=== PATIENT | male | born 1950 | race Caucasian/White ===

== ENCOUNTER 2017-01-24 14:18 | Inpatient (IN) | payer OTHER, MEDICARE ==
[~2017-01-24] VITALS: Ht 177.8 cm; Wt 88.5 kg
[2017-01-24] VITALS (7 sets, daily range): BP systolic 96–127; BP diastolic 47–93
[~2017-01-24 14:18] MED LIST changes: -APIX5TAB PO; -CALC-69 PO; -CETI10CA PO; -CHOL10007 PO; -DILT120C63 PO; -GARL10002 PO; -GLUC-219 PO; -KRIL1CAP2 PO; -MULT-1029 PO; -NAPR220C11 PO; -OMEG-109 PO; -PANT40TA3 PO; -SIMV40TA4 PO; -[UNRECOGNIZED DRUG - OTHER] PO
[2017-01-24] MEDS ORDERED: DILTIAZEM 100 MG/VIAL (CARDIZEM) ADD-VANTAGE IV ONE (14:29)
[2017-01-24] MEDS ORDERED: DILTIAZEM 25 MG/5 ML INJ (CARDIZEM) VIAL ONE (14:29)
[2017-01-24] MEDS ORDERED: SODIUM CHLORIDE (ADD-VANTAGE) 100 ML IV ONE (14:29)
[2017-01-24] MEDS ORDERED: NS IV 1000 ML 1,000 ML IV ONE (14:37)
[2017-01-24 14:41] LABS: BASOPHILS % (AUTO) 0 % (0-10); EOSINOPHILS # (AUTO) 0.1 10^3/uL (0.0-0.3); EOSINOPHILS % (AUTO) 1 % (0-10); LYMPHOCYTES # (AUTO) 1.6 X 10^3 (1.0-4.0); LYMPHOCYTES % (AUTO) 15 % (12-44); MEAN CORPUSCULAR HEMOGLOBIN 31 PG (25-34); MEAN CORPUSCULAR HGB CONC 34 G/DL (32-36); MEAN CORPUSCULAR VOLUME 92 FL (80-99); MONOCYTES # (AUTO) 0.6 X 10^3 (0.0-1.0); MONOCYTES % (AUTO) 5 % (0-12); NEUTROPHILS # (AUTO) 8.2 X 10^3 (1.8-7.8); NEUTROPHILS % (AUTO) 79 % (42-75); PLATELET COUNT 279 10^3/uL (130-400); RED BLOOD COUNT 5.27 10^6/uL (4.35-5.85); WHITE BLOOD COUNT 10.5 10^3/uL (4.3-11.0)
[2017-01-24] MEDS ORDERED: ASPIRIN 81 MG CHEW (CHILDREN'S ASA) PO ONE (14:45)
[2017-01-24] MEDS ORDERED: DILTIAZEM DRIP 100 MG in SODIUM CHLORIDE (ADD-VANTAGE) 100 ML IV SCH (14:45)
[2017-01-24] MEDS ORDERED: DILTIAZEM 25 MG/5 ML INJ (CARDIZEM) VIAL IVP ONE (14:45)
[2017-01-24 14:48] LABS: PROTHROMBIN TIME PATIENT 13.1 SEC (12.2-14.7)
[2017-01-24 14:56] LABS: ALANINE AMINOTRANSFERASE 18 U/L (0-55); ALBUMIN 4.3 GM/DL (3.2-4.5); ANION GAP 8 MMOL/L (5-14); ASPARTATE AMINO TRANSFERASE 15 U/L (5-34); BILIRUBIN,TOTAL 0.4 MG/DL (0.1-1.0); BLOOD UREA NITROGEN 20 MG/DL (7-18); BUN/CREATININE RATIO 21; CALCIUM 9.9 MG/DL (8.5-10.1); CARBON DIOXIDE 26 MMOL/L (21-32); CHLORIDE 106 MMOL/L (98-107); CREATININE SERUM 0.95 MG/DL (0.60-1.30); GFR ESTIMATED > 60; GLUCOSE 109 MG/DL (70-105); MAGNESIUM 2.3 MG/DL (1.8-2.4); POTASSIUM 4.5 MMOL/L (3.6-5.0); SODIUM 140 MMOL/L (135-145); TOTAL PROTEIN 7.5 GM/DL (6.4-8.2)
--- NOTE | 2017-01-24 15:00 | ED Cardiac General ---
History of Present Illness General Chief Complaint: Cardiac/General Problems Stated Complaint: EKG RESULTS Source: patient Exam Limitations: no limitations History of Present Illness Time seen by provider: 14:36 Initial Comments Here with report of chest fluttering that started at 1230. He had outpatient EKG ordered by his primary care physician. They noted atrial fibrillation with rapid ventricular rate and brought him to the ER for further evaluation. Patient does report chest discomfort. He has had a previous episode of atrial fibrillation but is not persistently in this. Denies nausea, vomiting, weakness or shortness of air. Denies sweating. Timing/Duration: 1-3 hours Severity: moderate Location: central Modifying Factors: improves with rest NTG SL BOW MAKER: No ASA po BOW MAKER: No Associated Systoms: No Chest Pain, No Cough, No Fever/Chills, No Nausea/ Vomiting, No Shortness of Air, No Weakness Allergies and Home Medications Allergies Coded Allergies: No Known Drug Allergies (Unverified , 02/16/12) Home Medications Calcium Carbonate/Vitamin D3 1 Each Tablet, 1 EACH PO DAILY, (Reported) Cholecalciferol (Vitamin D3) 1,000 Unit Tablet, 1,000 UNIT PO DAILY, (Reported) Multivitamin 1 Each Tablet, 1 EACH PO DAILY, (Reported) [place] 3 Polyunsat Fatty Acids 1,000 Mg Cap, 1,000 MG PO DAILY, (Reported) Pantoprazole Sodium 40 Mg Tablet.dr, 40 MG PO DAILY, (Reported) Simvastatin 40 Mg Tablet, 40 MG PO DAILY, (Reported) Review of Systems Constitutional: see HPI, No chills, fever EENTM: No Symptoms Reported Respiratory: No Symptoms Reported Cardiovascular: See HPI, Chest Pain, Irregular Heart Rate, Denies Palpitations , Denies Syncope Gastrointestinal: No Symptoms Reported, Denies Nausea, Denies Vomiting Genitourinary: No Symptoms Reported Musculoskeletal: no symptoms reported Skin: no symptoms reported All Other Systems Reviewed Negative Unless Noted: Yes Past Dflqfzf-Yrolqo-Dzdiqw Hx Patient Social History Alcohol Use: Occasionally Uses Recreational Drug Use: No Smoking Status: Never a Smoker Recent Foreign Travel: No Contact w/Someone Who Travel: No Immunizations Up To Date Date of Influenza Vaccine: Apr 23, 2015 Surgeries HX Surgeries: Yes Respiratory Hx Respiratory Disorders: No Cardiovascular Hx Cardiac Disorders: Yes Cardiac Disorders: High Cholesterol, Irregular Heartbeat Neurological Hx Neurological Disorders: No Gastrointestinal Hx Gastrointestinal Disorders: No Musculoskeletal Hx Musculoskeletal Disorders: No Endocrine Hx Endocrine Disorders: No Reviewed Nursing Assessment Reviewed/Agree w Nursing PMH: Yes Family Medical History Significant Family History: No Pertinent Family Hx Physical Exam Vital Signs Vital Sign - Last 12Hours 01/24/17 14:20 Temp 97.1 Pulse 153 Resp 25 B/P (MAP) 129/103 Pulse Ox 99 Capillary Refill : General Appearance: No Apparent Distress, WD/WN HEENT: PERRL/EOMI, Pharynx Normal Neck: Non Tender, Supple Respiratory: Lungs Clear, Normal Breath Sounds Cardiovascular: No Murmur, Irregularly Irregular, Tachycardia Gastrointestinal: Non Tender, Soft Extremity: Normal Inspection, Normal Range of Motion, Non Tender Neurologic/Psychiatric: Alert, Oriented x3 Skin: Normal Color, Warm/Dry Progress/Results/Core Measures Results/Orders Lab Results Laboratory Tests Test 01/24/17 14:30 Range/Units White Blood Count 10.5 4.3-11.0 10^3/uL Red Blood Count 5.27 4.35-5.85 10^6/uL Hemoglobin 16.3 13.3-17.7 G/DL Hematocrit 48 40-54 % Mean Corpuscular Volume 92 80-99 FL Mean Corpuscular Hemoglobin 31 25-34 PG Mean Corpuscular Hemoglobin Concent 34 32-36 G/DL Red Cell Distribution Width 13.0 10.0-14.5 % Platelet Count 279 130-400 10^3/uL Mean Platelet Volume 10.0 7.4-10.4 FL Neutrophils (%) (Auto) 79 H 42-75 % Lymphocytes (%) (Auto) 15 12-44 % Monocytes (%) (Auto) 5 0-12 % Eosinophils (%) (Auto) 1 0-10 % Basophils (%) (Auto) 0 0-10 % Neutrophils # (Auto) 8.2 H 1.8-7.8 X 10^3 Lymphocytes # (Auto) 1.6 1.0-4.0 X 10^3 Monocytes # (Auto) 0.6 0.0-1.0 X 10^3 Eosinophils # (Auto) 0.1 0.0-0.3 10^3/uL Basophils # (Auto) 0.0 0.0-0.1 10^3/uL Prothrombin Time 13.1 12.2-14.7 SEC INR Comment 1.0 0.8-1.4 Activated Partial Thromboplast Time 28 24-35 SEC Sodium Level 140 135-145 MMOL/L Potassium Level 4.5 3.6-5.0 MMOL/L Chloride Level 106 98-107 MMOL/L Carbon Dioxide Level 26 21-32 MMOL/L Anion Gap 8 5-14 MMOL/L Blood Urea Nitrogen 20 H 7-18 MG/DL Creatinine 0.95 0.60-1.30 MG/DL Estimat Glomerular Filtration Rate > 60 BUN/Creatinine Ratio 21 Glucose Level 109 H 70-105 MG/DL Calcium Level 9.9 8.5-10.1 MG/DL Magnesium Level 2.3 1.8-2.4 MG/DL Total Bilirubin 0.4 0.1-1.0 MG/DL Aspartate Amino Transf (AST/SGOT) 15 5-34 U/L Alanine Aminotransferase (ALT/SGPT) 18 0-55 U/L Alkaline Phosphatase 51 40-136 U/L Myoglobin 63.1 10.0-92.0 NG/ML Troponin I < 0.30 <0.30 NG/ML Total Protein 7.5 6.4-8.2 GM/DL Albumin 4.3 3.2-4.5 GM/DL My Orders Orders - TARAS PERKINS MD Diltiazem Drip (Cardizem Drip) (01/24/17 14:29) Diltiazem Injection (Cardizem Injection) (01/24/17 14:29) Sodium Chloride (Add-Russell) (Ns (Add-V (01/24/17 14:29) Cbc With Automated Diff (01/24/17 14:36) Magnesium (01/24/17 14:36) Chest 1 View, Ap/Pa Only (01/24/17 14:36) Cardiac Profile 1 (01/24/17 14:36) Comprehensive Metabolic Panel (01/24/17 14:36) Myoglobin Serum (01/24/17 14:36) Protime With Inr (01/24/17 14:36) Partial Thromboplastin Time (01/24/17 14:36) O2 (01/24/17 14:36) Monitor-Rhythm Ecg Trace Only (01/24/17 14:36) Lipid Panel (01/25/17 06:00) Aspirin Chewable Tablet (Baby Aspirin Ch (01/24/17 14:45) Saline Lock/Iv-Start (01/24/17 14:36) Diltiazem Injection (Cardizem Injection) (01/24/17 14:45) Sodium Chloride (Ad... W/Diltiazem Drip (01/24/17 14:45) Ns Iv 1000 Ml (Sodium Chloride 0.9%) (01/24/17 14:37) Enoxaparin Injection (Lovenox Injection) (01/24/17 15:45) Medications Given in ED Current Medications Medications Dose Ordered Sig/Emeli Route Start Time Stop Time Status Last Admin Dose Admin Aspirin 324 mg ONCE ONCE PO 01/24/17 14:45 01/24/17 14:46 DC 01/24/17 15:11 324 MG Diltiazem HCl 20 mg ONCE ONCE IVP 01/24/17 14:45 01/24/17 14:46 DC 01/24/17 14:48 20 MG Sodium Chloride 1,000 ml @ 0 mls/hr Q0M ONCE IV 01/24/17 14:37 01/24/17 14:38 DC 01/24/17 15:11 1,000 MLS/HR Vital Signs/I&O Vital Sign - Last 12Hours 01/24/17 01/24/17 14:20 14:48 Temp 97.1 Pulse 153 155 Resp 25 18 B/P (MAP) 129/103 149/103 Pulse Ox 99 99 Progress Note : Progress Note Seen and evaluated. IV, labs, chest x-ray ordered. EKG reviewed that was done at outpatient clinic today. Normal saline 1 L bolus. Cardizem 20 mg IV and 10 mg per hour drip initiated. Monitor patient. This did improve his rate. Lovenox 1 mg/kg subcutaneous ordered. Case discussed with Dr. Sanchez who accepts patient in consult. Discussed case with Sridhar Sierra, who accepts patient for admission, inpatient status. Patient and family agree with plan. ECG Initial ECG Impression Date: Jan 24, 2017 Initial ECG Impression Time: 14:07 Initial ECG Rate: 164 Initial ECG Rhythm: A Fib/Flutter Initial ECG Impression: Atrial Fibrillation w/RVR Comment Atrial fibrillation with rapid ventricular rate. Normal but rightward axis. No evidence of ST elevation MA. No previous available for comparison. Interpreted by me. Diagnostic Imaging Diagonstic Imaging: Xray Plain Films/CT/US/NM/MRI: chest Comments [facility]. [place], [place] NAME: ANTHONY CHAO [facility] REC#: [id number] PT STATUS: REG ER : 1950 PHYSICIAN: TARAS PERKINS MD ADMIT DATE: 01/24/17/ER Draft Date of Exam:01/24/17 CHEST 1 VIEW, AP/PA ONLY INDICATION: Cardiac dysrhythmia. COMPARISON: No previous study is available for comparison at this time. FINDINGS: Heart size and pulmonary vasculature are within normal limits, and the lungs are clear, bilaterally. IMPRESSION: Unremarkable chest. Dictated on workstation # [id number] Dict: 01/24/17 1519 Trans: 01/24/17 1521 [facility] [id number] Interpreted by: YONATHAN RODRIGUEZ MD Electronically signed by: Departure Communication Time/Spoke to Admitting Phy: 15:34 Time/Spoke to Consulting Physi: 15:29 Impression Impression: Primary Impression: Atrial fibrillation with rapid ventricular response Additional Impression: Chest pain Qualified Codes: R07.9 - Chest pain, unspecified Disposition: 01 HOME, SELF-CARE Condition: Improved Decision to Admit Reason: Admit from ER (General) Decision to Admit/Date: Jan 24, 2017 Time/Decision to Admit Time: 15:29 Departure-Patient Inst. Decision time for Depature: 15:45 Referrals: SRIDHAR ZHOU MD (PCP/Family) Primary Care Physician TARAS PERKINS MD Jan 24, 2017 15:00
[2017-01-24 15:01] LABS: MYOGLOBIN SERUM 63.1 NG/ML (10.0-92.0)
--- NOTE | 2017-01-24 15:22 | Diagnostic Imaging Report ---
INDICATION: Cardiac dysrhythmia. COMPARISON: No previous study is available for comparison at this time. FINDINGS: Heart size and pulmonary vasculature are within normal limits, and the lungs are clear, bilaterally. IMPRESSION: Unremarkable chest. Dictated by: Dictated on workstation # [id number]
[2017-01-24] MEDS ORDERED: ENOXAPARIN 100 MG/1 ML (LOVENOX) SYR SC ONE (15:45)
[2017-01-24] MEDS ORDERED: morphine INJ 4 MG/ML 1 ML (VIAL/SYRINGE) IV PRN (17:15)
[2017-01-24] MEDS ORDERED: NITROGLYCERIN SUBLINGUAL 0.4 MG TAB (NITROSTAT) SL PRN (17:15)
[2017-01-24] MEDS ORDERED: CATHETER FLUSH 10 ML SYR IV PRN (17:15)
[2017-01-24] MEDS: DILTIAZEM 120 MG (CARDIZEM CD) CAP PO SCH (17:54)
[2017-01-24] MEDS: DILTIAZEM DRIP 100 MG/NS 100 ML IV SCH ×2 (17:56)
[2017-01-24] MEDS: NS IV 1000 ML 1,000 ML IV SCH (17:57)
[2017-01-24] MEDS ORDERED: NAPR220C11 PO (20:14)
[2017-01-24] MEDS ORDERED: CETI10CA PO (20:15)
--- NOTE | 2017-01-24 20:44 | History & Physical ---
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 He started having palpitations so his employer recommended he go home or to the ER. This is the 3rd occurrence of his palpitations. He called my office and I ordered a EKG at [address]- showing Afib with RVR- He denies fevers, chills, headaches. He then was sent to the ER for stabilization. He was started on IVF and diltiazem and admitted to ICU- Pt converted to sinus rhythm with PACs. Pt's became hypotensive and bradycardic but asymptomatic- Diltiazem IV was stopped. Pt reports feeling better. Date of Admission Jan 24, 2017 at 15:40 Date Seen by Provider: Jan 24, 2017 Time Seen by Provider: 18:15 I consulted on this patient on 01/24/17 20:43 Attending Physician Sridhar Zhou MD Admitting Physician Sridhar Zhou MD Consult Dr. Sanchez Allergies and Home Medications Allergies Coded Allergies: No Known Drug Allergies (Unverified , 02/16/12) Home Medications Calcium Carbonate/Vitamin D3 1 Each Tablet, 1 EACH PO DAILY, (Reported) Cetirizine HCl 10 Mg Capsule, 10 MG PO DAILY, (Reported) Cholecalciferol (Vitamin D3) 1,000 Unit Tablet, 1,000 UNIT PO DAILY, (Reported) Multivitamin 1 Each Tablet, 1 EACH PO DAILY, (Reported) Naproxen Sodium 220 Mg Capsule, 220 MG PO DAILY, (Reported) [place] 3 Polyunsat Fatty Acids 1,000 Mg Cap, 1,000 MG PO DAILY, (Reported) Pantoprazole Sodium 40 Mg Tablet.dr, 40 MG PO DAILY, (Reported) Simvastatin 40 Mg Tablet, 40 MG PO DAILY, (Reported) Past Zdlabpy-Nyptmc-Dzzyrx Hx Patient Social History Alcohol Use: Denies Use Recreational Drug Use: No Smoking Status: Former Smoker Physical Abuse Screen: No Sexual Abuse: No Recent Foreign Travel: No Contact w/other who traveled: No Recent Hopitalizations: No Recent Infectious Disease Expo: No Immunizations Up To Date Date of Influenza Vaccine: Apr 23, 2015 Seasonal Allergies Seasonal Allergies: No Surgeries HX Surgeries: Yes Respiratory Hx Respiratory Disorders: No Cardiovascular Hx Cardiovascular Disorders: Yes Cardiac Disorders: High Cholesterol, Irregular Heartbeat Neurological Hx Neurological Disorders: No Gastrointestinal Hx Gastrointestinal Disorders: No Musculoskeletal Hx Musculoskeletal Disorders: No Endocrine Hx Endocrine Disorders: No Blood Transfusions Adverse Reaction to a Blood Tr: No Reviewed Nursing Assessment Reviewed/Agree w Nursing PMH: Yes Family Medical History Significant Family History: No Pertinent Family Hx Review of Systems Review of Systems General: No Chills, No Night Sweats HEENT: No Head Aches, No Visual Changes Pulmonary: No Dyspnea, No Cough, No Pleuritic Chest Pain Cardiovascular: Palpitations, No: Chest Pain, Orthopnea Gastrointestinal: No: Abdominal Pain, Nausea, Vomiting Genitourinary: No Dysuria, No Frequency Musculoskeletal: No: neck pain, shoulder pain Neurological: Weakness, No: Confusion, Incoordination All Other Systems Reviewed All Other Systems Reviewed: Yes Physical Exam Vital Signs Vital Sign - Last 12Hours 01/24/17 14:20 Temp 97.1 Pulse 153 Resp 25 B/P (MAP) 129/103 Pulse Ox 99 Capillary Refill : Less Than 3 Seconds General Appearance: No Apparent Distress, WD/WN HEENT: PERRL/EOMI Neck: Normal Inspection, Non Tender, Supple Respiratory: Chest Non Tender, Lungs Clear, Normal Breath Sounds, No Accessory Muscle Use, No Respiratory Distress Cardiovascular: Regular Rate, Rhythm, No Edema, No Murmur, Extra Beats (PACs) Gastrointestinal: Normal Bowel Sounds, Non Tender, Soft Extremity: Normal Range of Motion, Non Tender, No Calf Tenderness Neurologic/Psychiatric: Alert, Oriented x3, No Motor/Sensory Deficits, Normal Mood/Affect Skin: Normal Color, Warm/Dry Lymphatic: No Adenopathy Assessment/Plan Assessment/Plan Assessment/Plan 67 yo M * Paroxysmal Atrial fibrillation- Last episode was May 2016- currently on therapeutic lovenox- converted with IVF, diltiazem gtts- ( gtts stopped due to hypotension) -ECHO 01/25/17 -TSH, T4 -[id number] score: 1 intermediate risk 1.3% per year of thromboembolism rate- Aspirin -Dr. Sanchez to see pt 01/25/17 -diltiazem po. *hypotension/bradycardia- due to diltiazem gtts- turned off gtts- heart rate and BP improving. *fatigue- due to afib *chest discomfort- trend troponins *GERD- ppi Dispo: will reassess in AM- diltiazem gtts dropped pt's BP and pulse- d/c'd Dr. Sanchez to see pt. Problems: Clinical Quality Measures AMI/AHF: ASA po Prior to arrival: No DVT/VTE Risk/Contraindication: Risk Factor Score Per Nursin RFS Level Per Nursing on Admit: 2=Moderate SRIDHAR ZHOU MD Jan 24, 2017 20:44
[2017-01-25] VITALS (13 sets, daily range): BP systolic 80–136; BP diastolic 46–74
[2017-01-25] MEDS: DILTIAZEM DRIP 100 MG/NS 100 ML IV SCH ×2 (03:08)
[2017-01-25] MEDS: NS IV 1000 ML 1,000 ML IV SCH (03:50)
[2017-01-25 04:02] LABS: BASOPHILS % (AUTO) 0 % (0-10); EOSINOPHILS # (AUTO) 0.1 10^3/uL (0.0-0.3); EOSINOPHILS % (AUTO) 2 % (0-10); LYMPHOCYTES # (AUTO) 1.9 X 10^3 (1.0-4.0); LYMPHOCYTES % (AUTO) 31 % (12-44); MEAN CORPUSCULAR HEMOGLOBIN 31 PG (25-34); MEAN CORPUSCULAR HGB CONC 33 G/DL (32-36); MEAN CORPUSCULAR VOLUME 94 FL (80-99); MEAN PLATELET VOLUME 10.5 FL (7.4-10.4); MONOCYTES # (AUTO) 0.4 X 10^3 (0.0-1.0); MONOCYTES % (AUTO) 6 % (0-12); NEUTROPHILS # (AUTO) 3.6 X 10^3 (1.8-7.8); NEUTROPHILS % (AUTO) 60 % (42-75); PLATELET COUNT 249 10^3/uL (130-400); RED BLOOD COUNT 4.46 10^6/uL (4.35-5.85); RED CELL DISTRIBUTION WIDTH 13.2 % (10.0-14.5)
[2017-01-25 04:29] LABS: ALANINE AMINOTRANSFERASE 16 U/L (0-55); ALBUMIN 3.4 GM/DL (3.2-4.5); ANION GAP 12 MMOL/L (5-14); ASPARTATE AMINO TRANSFERASE 13 U/L (5-34); BILIRUBIN,TOTAL 0.5 MG/DL (0.1-1.0); BLOOD UREA NITROGEN 18 MG/DL (7-18); BUN/CREATININE RATIO 22; CALCIUM 8.4 MG/DL (8.5-10.1); CARBON DIOXIDE 19 MMOL/L (21-32); CHLORIDE 108 MMOL/L (98-107); CREATININE SERUM 0.83 MG/DL (0.60-1.30); GFR ESTIMATED > 60; GLUCOSE 98 MG/DL (70-105); POTASSIUM 4.1 MMOL/L (3.6-5.0); SODIUM 139 MMOL/L (135-145); TOTAL PROTEIN 5.9 GM/DL (6.4-8.2)
[2017-01-25 04:52] LABS: THYROID STIMULATING HORMONE 3.79 UIU/ML (0.35-4.94)
[2017-01-25 04:57] LABS: CHOLESTEROL 158 MG/DL (< 200); DIRECT LDL 110 MG/DL (1-129); TRIGLYCERIDES 79 MG/DL (<150); VLDL CHOLESTEROL 16 MG/DL (5-40)
[2017-01-25 05:12] LABS: MAGNESIUM 2.1 MG/DL (1.8-2.4); PHOSPHORUS 3.5 MG/DL (2.3-4.7)
[2017-01-25] MEDS ORDERED: ENOXAPARIN 100 MG/1 ML (LOVENOX) SYR SC SCH (06:00)
[2017-01-25] MEDS ORDERED: PANTOPRAZOLE 40 MG (PROTONIX) TAB PO SCH (09:00)
[2017-01-25] MEDS ORDERED: ASPIRIN E.C. 325 MG (ECOTRIN) TABLET PO SCH (09:00)
[2017-01-25] MEDS ORDERED: APIXABAN 5 MG (ELIQUIS) TABLET PO SCH (10:00)
[2017-01-25] MEDS ORDERED: PANT40TA3 PO (10:11)
[2017-01-25] MEDS ORDERED: CALC-69 PO (10:11)
[2017-01-25] MEDS ORDERED: KRIL1CAP2 PO (10:11)
[2017-01-25] MEDS ORDERED: [UNRECOGNIZED DRUG - OTHER] PO (10:11)
[2017-01-25] MEDS ORDERED: GARL10002 PO (10:11)
[2017-01-25] MEDS ORDERED: CHOL10007 PO (10:11)
[2017-01-25] MEDS ORDERED: OMEG-109 PO (10:11)
[2017-01-25] MEDS ORDERED: SIMV40TA4 PO (10:11)
[2017-01-25] MEDS ORDERED: MULT-1029 PO (10:11)
[2017-01-25] MEDS ORDERED: GLUC-219 PO (10:11)
[2017-01-25] MEDS: DILTIAZEM 120 MG (CARDIZEM CD) CAP PO SCH (11:01)
[2017-01-25] MEDS ORDERED: DILT120C63 PO (12:41)
[2017-01-25] MEDS ORDERED: APIX5TAB PO (12:41)
--- NOTE | 2017-01-25 12:49 | Discharge Summary ---
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 He started having palpitations so his employer recommended he go home or to the ER. This is the 3rd occurrence of his palpitations. He called my office and I ordered a EKG at [address]- showing Afib with RVR- He denies fevers, chills, headaches. He then was sent to the ER for stabilization. He was started on IVF and diltiazem and admitted to ICU- Pt converted to sinus rhythm with PACs. Pt's became hypotensive and bradycardic but asymptomatic- Diltiazem IV was stopped. Pt reports feeling better. Discharge Summary Hospital Course Hospital Course 67 yo M found to have Paroxysmal Atrial fibrillation with RVR- he converted with IVF and diltiazem- It appeared that the diltiazem gtts gave him hypotension and bradycardia so it was stopped. Thyroid labs were normal. Echo was normal. -[id number] score: 1 intermediate risk 1.3% per year of thromboembolism rate- After discussion with Dr. Sanchez patient decided to go with [facility] as it has a lower stroke risk profile. Pt will continue diltiazem po and monitor pulse. Troponins were negative. Patient was stable for discharge the following day in normal sinus rhythm- pulse was still in the 50s- asymptomatic bradycardia. He will follow up with myself and Dr. Sanchez. Labs Procedures None. Consultations Dr. Sanchez Discharge Physical Examination Allergies: Coded Allergies: No Known Drug Allergies (Unverified , 02/16/12) Vitals & I&Os Vital Signs Date Time Temp Pulse Resp B/P (MAP) Pulse Ox O2 Delivery O2 Flow Rate FiO2 01/25/17 13:20 01/25/17 13:00 44 19 95 Room Air 01/25/17 07:00 96.7 General Appearance: Alert, Oriented X3, Cooperative HEENT: Atraumatic, PERRLA Respiratory: Clear to Auscultation Cardiovascular: Regular Rate Abdominal: Normal Bowel Sounds, Soft Extremities: No Clubbing, No Cyanosis Skin: No Rashes, No Breakdown Neuro: Normal Gait, Normal Speech, Strength at 5/5 X4 Ext Psych/Mental Status: Mental Status NL, Mood NL Discharge Home Medications Reviewed and agree with Discharge Medication list on patient's Discharge Instruction sheet Condition at Discharge stable Instructions to Patient/Family Please see electronic discharge instructions given to patient. Clinical Quality Measures AMI/AHF: ASA po Prior to arrival: No DVT/VTE Risk/Contraindication: Risk Factor Score Per Nursin RFS Level Per Nursing on Admit: 2=Moderate MADELINE ZHOU MD Jan 25, 2017 12:49
--- NOTE | 2017-01-25 13:25 | Consultation-Cardiology ---
HPI-Cardiology Cardiology Consultation: Date of Consultation 01/25/17 Date of Admission Attending Physician Sridhar Lomax MD Admitting Physician Sridhar Lomax MD Consulting Physician Sherri SANCHEZ MD HPI: Time Seen by Provider: 10:00 Chief Complaint: Palpitations This is a 67-year-old gentleman who has no significant past cardiac history. Presents with atrial fibrillation with rapid ventricular rate. He was complaining of palpitations keep. Denies syncope, near-syncope, chest pain or shortness of breath. Review of Systems-Cardiology Review of Systems Constitutional: No As described under HPI, No no symptoms reported, No chills, No fever, No lightheadedness, No malaise, No tiredness, No weight loss, No weight gain, No other Eyes: No As described under HPI, No no symptoms reported, No blindness, No blurred vision, No contact lenses, No drainage, No decreased acuity, No foreign body sensation, No glasses, No inflammation, No pain, No photophobia, No previous injury, No shadows, No tunnel vision, No other, No vision change Ears/Nose/Throat: No As described under HPI, No no symptoms reported, No chronic hearing loss, No epistaxis, No ear discharge, No ear pain, No loose teeth, No mouth pain, No mouth swelling, No nasal drainage, No nose pain, No recent hearing loss, No throat pain, No throat swelling, No ulcerations, No other Respiratory: No no symptoms reported, No As described under HPI, No cough, No orthopnea, No shortness of breath, No SOB with excertion, No SOB at rest, No stridor, No wheezing, No other Cardiovascular: irregular heart rate, palpitations Gastrointestinal: No no symptoms reported, No As described under HPI, No abdomen distended, No abdominal pain, No blood streaked bowels, No constipation , No diarrhea, No difficulty swallowing, No nausea, No poor appetite, No poor fluid intake, No rectal bleeding, No vomiting, No other, No nausea/vomiting/ diarrhea, No stool coloration changes Genitourinary: No no symptoms reported, No As described under HPI, No burning, No dysuria, No discharge, No frequency, No flank pain, No hematuria, No incontinence, No pain, No urgency, No other, No urine frequency changes, No urine coloration changes Musculoskeletal: No no symptoms reported, No As describe under HPI, No back pain, No gout, No joint pain, No joint swelling, No muscle pain, No muscle stiffness, No neck pain, No other Skin: No no symptoms reported, No As described under HPI, No change in color, No change in hair/nails, No dryness, No lesions, No lumps, No rash, No other, No skin related problems, No ulcerations, No rash on exposed areas, No ulcerations on exposed areas Psychiatric/Neurological: No As described under HPI, No anxiety, No depression , No emotional problems, No focal weakness, No headache, No no symptoms reported , No numbness, No other, No pre-existing deficit, No seizure, No syncope, No tingling, No tremors, No weakness Hematologic: No no symptoms reported, No As described under HPI, No anemia, No blood clots, No easy bleeding, No easy bruising, No swollen glands, No other, No bleeding abnormalities All Other Systems Reviewed Negative Unless Noted: Yes NOI-Abrxcy-Sotgsh Hx Patient Social History Alcohol Use: Denies Use Recreational Drug Use: No Smoking Status: Former Smoker Recent Foreign Travel: No Recent Infectious Disease Expo: No Hospitalization with Isolation: Denies Physical Abuse Screen: No Sexual Abuse: No Immunizations Up To Date Date of Influenza Vaccine: Apr 23, 2015 Past Medical History PMH As described under Assessment. Allergies and Home Medications Allergies Coded Allergies: No Known Drug Allergies (Unverified , 02/16/12) Home Medications Apixaban 5 Mg Tablet, 5 MG PO BID for 30 Days, Ref 2 Prescribed by: KEO GUILLEN on 01/25/17 1241 Calcium Citrate/Vitamin D3 1 Each Tablet, 1 TAB PO HS, (Reported) Cetirizine HCl 10 Mg Capsule, 10 MG PO SuTuThSa, (Reported) Cholecalciferol (Vitamin D3) 1,000 Unit Capsule, 1,000 UNIT PO HS, (Reported) Diltiazem HCl 120 Mg Cap.er.24h, 120 MG PO DAILY for 30 Days, Ref 2 Prescribed by: KEO GUILLEN on 01/25/17 1241 Garlic 1,000 Mg Capsule, 1,000 MG PO HS, (Reported) Glucosamine/D3/Boswellia Belle 1 Each Tablet, 2 TAB PO BID, (Reported) Krill Oil/Dexter-3/Dha/Epa 1 Each Capsule, 1 CAP PO HS, (Reported) Multivit-Min/FA/Lycopene/Lut 1 Each Tablet, 1 TAB PO HS, (Reported) Naproxen Sodium 220 Mg Capsule, 440 MG PO DAILY, (Reported) TAKES 2 (220 MG) TABLETS Dexter-3 Fatty Acids/Fish Oil 1 Each Capsule, 2,400 MG PO DAILY, (Reported) TAKES 2 (1,200 MG) CAPSULES Pantoprazole Sodium 40 Mg Tablet.dr, 40 MG PO DAILY, (Reported) Simvastatin 40 Mg Tablet, 40 MG PO HS, (Reported) [Hydraflexin] , 1 TAB PO BID, (Reported) Physical Exam-Cardiology Physical Exam Vital Signs/I&O Vital Sign - Last 12Hours 01/25/17 01/25/17 01/25/17 01/25/17 02:00 03:00 03:50 03:50 Temp 98.0 Pulse 42 44 Resp 15 21 B/P (MAP) 80/46 91/56 Pulse Ox 96 94 95 O2 Delivery Room Air Room Air Room Air 01/25/17 01/25/17 01/25/17 01/25/17 04:00 05:00 06:00 07:00 Temp 96.7 Pulse 46 43 43 51 Resp 17 11 15 12 B/P (MAP) 105/69 98/62 94/71 123/74 Pulse Ox 95 96 95 O2 Delivery Room Air Room Air Room Air Room Air Intake and Output 01/25/17 00:00 Intake Total 1500 ml Output Total 400 ml Balance 1100 ml Capillary Refill : Less Than 3 Seconds Constitutional: No appears stated age, No AAO x 3, No apparent distress, No PERRL, No well-developed, No well-nourished, No other HEENT: No PERRL, No normal ENT inspection, No TMs normal, No pharynx normal, No scleral icterus (R), No scleral icterus (L), No pale conjunctivae (R), No pale conjunctivae (L), No photophobia, No TM abnormal (R), No TM abnormal (L), No pharyngeal erythema, No tonsillar exudate, No other, No discharge, No EOMI, No hearing is well preserved, No hard of hearing, No oral hygience is good, No ulceration, No xanthelasmas are seen Neck: No non-tender, No full range of motion, No supple, No normal inspection, No carotid bruit, No limited range of motion, No lymphadenopathy (R), No lymphadenopathy (L), No tender lateral, No tender midline, No thyromegaly, No other, No carotid pulses are 2 + bilaterally, No with good upstrokes Respiratory: No accessory muscle use, No respiratory distress, No chest tender , No chest expansion is symmetric, No chest is bilaterally symmetric, No lungs clear to percussion, No lungs clear to auscultation, No crackles, No rhonchi, No rales, No stridor, No wheezing, No pleural rub, No other Cardiovascular: regular rate-rhythm, bradycardia, S1 and S2 Gastrointestinal: No tender, No soft, No round, No distended, No pulsatile mass , No organomegaly, No guarding, No rebound, No tenderness, No hernia, No mass, No audible bowel sounds, No abnormal bowel sounds, No abdominal bruits, No spleenomegaly, No other Rectal: deferred Extremities: No normal range of motion, No non-tender, No normal inspection, No pedal edema, No calf tenderness, No normal capillary refill, No pelvis stable , No calf tenderness, No inflammation, No pedal edema, No slow capillary refill , No swelling, No other, No abrasion, No clubbing, No cyanosis, No ecchymosis, No laceration, No no lower extremity edema bilateral, No significant edema, No tenderness, No wound Neurologic/Psychiatric: No stone banker II-XII nml as tested, No no motor/sensory deficits, No alert, No normal mood/affect, No oriented x 3, No abnormal cerebellar tests, No abnormal stone banker II-XII, No abnormal gait, No aphasia, No EOM palsy, No facial droop, No motor weakness, No sensory deficit, No depressed affect, No disoriented x 3, No other, No grossly intact, No power is 5/5 both on sides Skin: No normal color, No warm/dry, No cyanosis, No cool, No diaphoresis, No damp, No ecchymosis, No jaundice, No mottled, No pallor, No rash, No tattoos/ piercings, No ulcerations, No rash on exposed areas, No ulcerations on exposed areas, No other Data Review Labs Laboratory Tests 01/24/17 14:30: White Blood Count 10.5, Red Blood Count 5.27, Hemoglobin 16.3, Hematocrit 48, Mean Corpuscular Volume 92, Mean Corpuscular Hemoglobin 31, Mean Corpuscular Hemoglobin Concent 34, Red Cell Distribution Width 13.0, Platelet Count 279, Mean Platelet Volume 10.0, Neutrophils (%) (Auto) 79H, Lymphocytes (%) (Auto) 15 , Monocytes (%) (Auto) 5, Eosinophils (%) (Auto) 1, Basophils (%) (Auto) 0, Neutrophils # (Auto) 8.2H, Lymphocytes # (Auto) 1.6, Monocytes # (Auto) 0.6, Eosinophils # (Auto) 0.1, Basophils # (Auto) 0.0, Prothrombin Time 13.1, INR Comment 1.0, Activated Partial Thromboplast Time 28, Sodium Level 140, Potassium Level 4.5, Chloride Level 106, Carbon Dioxide Level 26, Anion Gap 8, Blood Urea Nitrogen 20H, Creatinine 0.95, Estimat Glomerular Filtration Rate > 60, BUN/Creatinine Ratio 21, Glucose Level 109H, Calcium Level 9.9, Magnesium Level 2.3, Total Bilirubin 0.4, Aspartate Amino Transf (AST/SGOT) 15, Alanine Aminotransferase (ALT/SGPT) 18, Alkaline Phosphatase 51, Myoglobin 63.1, Troponin I < 0.30, Total Protein 7.5, Albumin 4.3 01/24/17 20:26: Troponin I < 0.30 01/25/17 03:00: White Blood Count 6.0, Red Blood Count 4.46, Hemoglobin 13.7, Hematocrit 42, Mean Corpuscular Volume 94, Mean Corpuscular Hemoglobin 31, Mean Corpuscular Hemoglobin Concent 33, Red Cell Distribution Width 13.2, Platelet Count 249, Mean Platelet Volume 10.5H, Neutrophils (%) (Auto) 60, Lymphocytes (%) (Auto) 31 , Monocytes (%) (Auto) 6, Eosinophils (%) (Auto) 2, Basophils (%) (Auto) 0, Neutrophils # (Auto) 3.6, Lymphocytes # (Auto) 1.9, Monocytes # (Auto) 0.4, Eosinophils # (Auto) 0.1, Basophils # (Auto) 0.0, Sodium Level 139, Potassium Level 4.1, Chloride Level 108H, Carbon Dioxide Level 19L, Anion Gap 12, Blood Urea Nitrogen 18, Creatinine 0.83, Estimat Glomerular Filtration Rate > 60, BUN/ Creatinine Ratio 22, Glucose Level 98, Calcium Level 8.4L, Magnesium Level 2.1, Total Bilirubin 0.5, Aspartate Amino Transf (AST/SGOT) 13, Alanine Aminotransferase (ALT/SGPT) 16, Alkaline Phosphatase 41, Total Protein 5.9L, Albumin 3.4, Phosphorus Level 3.5, Triglycerides Level 79, Cholesterol Level 158 , LDL Cholesterol Direct 110, VLDL Cholesterol 16, HDL Cholesterol 42, Thyroid Stimulating Hormone (TSH) 3.79 ECG Impression ECG Initial ECG Rhythm: Normal Sinus A/P-Cardiology Assessment/Admission Diagnosis Paroxysmal atrial fibrillation with rapid ventricular rate Plan This is 67-year-old gentleman with no significant past cardiac history. He denies having diabetes or hypertension. He had paroxysmal atrial fibrillation episode with rapid ventricular rate. He spontaneously converted to sinus rhythm with bolus of Cardizem. I have discussed at length with the patient about oral anticoagulation. His CHADSVASC core is 1 for age. Therefore efficacy of aspirin is equal to oral anticoagulation. However aspirin has better bleeding risk profile however slightly higher stroke risk. Oral anticoagulation has higher bleeding risk but much better stroke prevention. I discussed at length with the patient and shared with him that according to the guidelines with his current score full aspirin is equivalent to oral anticoagulation. The patient decided to proceed with oral anticoagulation and accepted the risk of bleeding. We will start Eliquis therapy. He will also be started on Cardizem 120 mg long-acting. He will follow-up with me in the office. Thank you for your consultation. Please call me if you have any questions. Amanda Sanchez MD, FACP, FACC, [facility], FHRS, CCDS Interventional Cardiology Cardiac Electrophysiology Vascular Medicine and Endovascular Interventions Clinical Quality Measures AMI/AHF: ASA po Prior to arrival: No DVT/VTE Risk/Contraindication: Risk Factor Score Per Nursin RFS Level Per Nursing on Admit: 2=Moderate Sherri SANCHEZ MD Jan 25, 2017 13:25
[2017-01-25] MEDS ORDERED: SIMvastatin 40 MG (ZOCOR) TAB PO SCH (21:00)
--- OUTSIDE RECORDS SUMMARY | 2017-02-03 19:33 | XMS REPORT | Continuity of Care Document ---
Author Author [facility] Organization [facility] Address Unknown Phone Unavailable Allergies Active Description Code Type Severity Reaction Onset Reported/Identified Relationship to Patient Clinical Status Yes No Known Drug Allergies [id number] Drug Allergy Unknown N/ A 02/16/2012 Medications Problems Date Dx Coded Attending Type Code Diagnosis Diagnosed By 05/23/2015 TANGELA GARCIA [employer] Ot R00.2 06/03/2015 JOSE TANGELA [employer] Ot R00.2 06/04/2015 JOSE [employer]ANGELA [employer] Ot R00.2 06/12/2015 JOHN GARCIASA [employer] Ot R00.2 06/19/2015 KEE NAVARRETE, STAN Polanco Ot Z01.818 06/23/2015 KEE NAVARRETE, STAN Polanco Ot E78.5 HYPERLIPIDEMIA, UNSPECIFIED 06/23/2015 KEE NAVARRETE, STAN Polanco Ot Z12.11 ENCOUNTER FOR SCREENING FOR MALIGNANT NE 01/24/2017 KEE NAVARRETE, STNA Polanco Ot Z01.818 ENCOUNTER FOR OTHER PREPROCEDURAL EXAMIN 01/24/2017 JOHN GARCIASA [employer] Ot R00.2 PALPITATIONS 01/24/2017 JOHN GARCIASA [employer] Ot R00.2 PALPITATIONS 01/24/2017 KEE NAVARRETE, STAN Polanco Ot Z01.818 ENCOUNTER FOR OTHER PREPROCEDURAL EXAMIN 01/24/2017 TIESHARE TANGELA [employer] Ot R00.2 PALPITATIONS 01/24/2017 JOHN GARCIASA [employer] Ot R00.2 PALPITATIONS 01/25/2017 ABELARDO NAVARRETE, MADELINE Thornton Ot R00.2 PALPITATIONS 01/25/2017 MADELINE ZHOU MD Ot E78.00 PURE HYPERCHOLESTEROLEMIA, UNSPECIFIED 01/25/2017 ABELARDO NAVARRETE, MADELINE Thornton Ot I48.0 PAROXYSMAL ATRIAL FIBRILLATION 01/25/2017 MADELINE ZHOU MD Ot I95.9 HYPOTENSION, UNSPECIFIED 01/25/2017 MADELINE ZHOU MD, Ot K21.9 GASTRO-ESOPHAGEAL REFLUX DISEASE WITHOUT 01/25/2017 MADELINE ZHOU MD, Ot R00.1 BRADYCARDIA, UNSPECIFIED 01/25/2017 MADELINE ZHOU MD, Ot R07.89 OTHER CHEST PAIN 01/25/2017 MADELINE ZHOU MD, Ot R53.83 OTHER FATIGUE 01/25/2017 MADELINE ZHOU MD, Ot Z87.891 PERSONAL HISTORY OF NICOTINE DEPENDENCE Procedures Results Test Result Range Complete blood count (CBC) with automated white blood cell (WBC) differential - 01/24/17 14:30 Blood leukocytes automated count (number/volume) 10.5 10*3/ uL 4.3-11.0 Blood erythrocytes automated count (number/volume) 5.27 10*6 /uL 4.35-5.85 Venous blood hemoglobin measurement (mass/volume) 16.3 g/dL 13.3-17.7 Blood hematocrit (volume fraction) 48 % 40-54 Automated erythrocyte mean corpuscular volume 92 [foz_us] 80-99 Automated erythrocyte mean corpuscular hemoglobin (mass per erythrocyte) 31 pg 25-34 Automated erythrocyte mean corpuscular hemoglobin concentration measurement ( mass/volume) 34 g/dL 32-36 Automated erythrocyte distribution width ratio 13.0 % 10.0-14.5 Automated blood platelet count (count/volume) 279 10*3/uL 130-400 Automated blood platelet mean volume measurement 10.0 [foz_ us] 7.4-10.4 Automated blood neutrophils/100 leukocytes 79 % 42-75 Automated blood lymphocytes/100 leukocytes 15 % 12-44 Blood monocytes/100 leukocytes 5 % 0-12 Automated blood eosinophils/100 leukocytes 1 % 0-10 Automated blood basophils/100 leukocytes 0 % 0-10 Blood neutrophils automated count (number/volume) 8.2 10*3 1.8-7.8 Blood lymphocytes automated count (number/volume) 1.6 10*3 1.0-4.0 Blood monocytes automated count (number/volume) 0.6 10*3 0.0-1.0 Automated eosinophil count 0.1 10*3/uL 0.0-0.3 Automated blood basophil count (count/volume) 0.0 10*3/uL 0.0-0.1 PT panel in platelet poor plasma by coagulation assay - 01/24/17 14:30 Prothrombin time (PT) in platelet poor plasma by coagulation assay 13.1 s 12.2-14.7 INR in platelet poor plasma or blood by coagulation assay 1.0 0.8-1.4 Activated partial thromboplastin time (aPTT) in platelet poor plasma bycoagulation assay - 01/24/17 14:30 Activated partial thromboplastin time (aPTT) in platelet poor plasma bycoagulation assay 28 s 24-35 Comprehensive metabolic panel - 01/24/17 14:30 Serum or plasma sodium measurement (moles/volume) 140 mmol/ L 135-145 Serum or plasma potassium measurement (moles/volume) 4.5 mmol/L 3.6-5.0 Serum or plasma chloride measurement (moles/volume) 106 mmol /L 98-107 Carbon dioxide 26 mmol/L 21-32 Serum or plasma anion gap determination (moles/volume) 8 mmol/L 5-14 Serum or plasma urea nitrogen measurement (mass/volume) 20 mg/dL 7-18 Serum or plasma creatinine measurement (mass/volume) 0.95 mg /dL 0.60-1.30 Serum or plasma urea nitrogen/creatinine mass ratio 21 NRG Serum or plasma creatinine measurement with calculation of estimated glomerular filtration rate > NRG Serum or plasma glucose measurement (mass/volume) 109 mg/dL 70-105 Serum or plasma calcium measurement (mass/volume) 9.9 mg/dL 8.5-10.1 Serum or plasma total bilirubin measurement (mass/volume) 0.4 mg/dL 0.1-1.0 Serum or plasma alkaline phosphatase measurement (enzymatic activity/volume) 51 U/L 40-136 Serum or plasma aspartate aminotransferase measurement (enzymatic activity/ volume) 15 U/L 5-34 Serum or plasma alanine aminotransferase measurement (enzymatic activity/volume ) 18 U/L 0-55 Serum or plasma protein measurement (mass/volume) 7.5 g/dL 6.4-8.2 Serum or plasma albumin measurement (mass/volume) 4.3 g/dL 3.2-4.5 Magnesium - 01/24/17 14:30 Magnesium 2.3 mg/dL 1.8-2.4 Serum or plasma troponin i.cardiac measurement (mass/volume) - 01/24/17 14:30 Serum or plasma troponin i.cardiac measurement (mass/volume) < ng/mL <0.30 Myoglobin, serum - 01/24/17 14:30 Myoglobin, serum 63.1 ng/mL 10.0-92.0 Serum or plasma troponin i.cardiac measurement (mass/volume) - 01/24/17 20:26 Serum or plasma troponin i.cardiac measurement (mass/volume) < ng/mL <0.30 Complete blood count (CBC) with automated white blood cell (WBC) differential - 01/25/17 03:00 Blood leukocytes automated count (number/volume) 6.0 10*3/ uL 4.3-11.0 Blood erythrocytes automated count (number/volume) 4.46 10*6 /uL 4.35-5.85 Venous blood hemoglobin measurement (mass/volume) 13.7 g/dL 13.3-17.7 Blood hematocrit (volume fraction) 42 % 40-54 Automated erythrocyte mean corpuscular volume 94 [foz_us] 80-99 Automated erythrocyte mean corpuscular hemoglobin (mass per erythrocyte) 31 pg 25-34 Automated erythrocyte mean corpuscular hemoglobin concentration measurement ( mass/volume) 33 g/dL 32-36 Automated erythrocyte distribution width ratio 13.2 % 10.0-14.5 Automated blood platelet count (count/volume) 249 10*3/uL 130-400 Automated blood platelet mean volume measurement 10.5 [foz_ us] 7.4-10.4 Automated blood neutrophils/100 leukocytes 60 % 42-75 Automated blood lymphocytes/100 leukocytes 31 % 12-44 Blood monocytes/100 leukocytes 6 % 0-12 Automated blood eosinophils/100 leukocytes 2 % 0-10 Automated blood basophils/100 leukocytes 0 % 0-10 Blood neutrophils automated count (number/volume) 3.6 10*3 1.8-7.8 Blood lymphocytes automated count (number/volume) 1.9 10*3 1.0-4.0 Blood monocytes automated count (number/volume) 0.4 10*3 0.0-1.0 Automated eosinophil count 0.1 10*3/uL 0.0-0.3 Automated blood basophil count (count/volume) 0.0 10*3/uL 0.0-0.1 Comprehensive metabolic panel - 01/25/17 03:00 Serum or plasma sodium measurement (moles/volume) 139 mmol/ L 135-145 Serum or plasma potassium measurement (moles/volume) 4.1 mmol/L 3.6-5.0 Serum or plasma chloride measurement (moles/volume) 108 mmol /L 98-107 Carbon dioxide 19 mmol/L 21-32 Serum or plasma anion gap determination (moles/volume) 12 mmol/L 5-14 Serum or plasma urea nitrogen measurement (mass/volume) 18 mg/dL 7-18 Serum or plasma creatinine measurement (mass/volume) 0.83 mg /dL 0.60-1.30 Serum or plasma urea nitrogen/creatinine mass ratio 22 NRG Serum or plasma creatinine measurement with calculation of estimated glomerular filtration rate > NRG Serum or plasma glucose measurement (mass/volume) 98 mg/dL 70-105 Serum or plasma calcium measurement (mass/volume) 8.4 mg/dL 8.5-10.1 Serum or plasma total bilirubin measurement (mass/volume) 0.5 mg/dL 0.1-1.0 Serum or plasma alkaline phosphatase measurement (enzymatic activity/volume) 41 U/L 40-136 Serum or plasma aspartate aminotransferase measurement (enzymatic activity/ volume) 13 U/L 5-34 Serum or plasma alanine aminotransferase measurement (enzymatic activity/volume ) 16 U/L 0-55 Serum or plasma protein measurement (mass/volume) 5.9 g/dL 6.4-8.2 Serum or plasma albumin measurement (mass/volume) 3.4 g/dL 3.2-4.5 THYROID STIMULATING HORMONE - 01/25/17 03:00 THYROID STIMULATING HORMONE 3.79 u[iU]/mL 0.35-4.94 Lipid 1996 panel - 01/25/17 03:00 Serum or plasma triglyceride measurement (mass/volume) 79 mg /dL <150 Serum or plasma cholesterol measurement (mass/volume) 158 mg /dL < 200 Serum or plasma cholesterol in HDL measurement (mass/volume) 42 mg/dL 40-60 Cholesterol in LDL [mass/volume] in serum or plasma by direct assay 110 mg/dL 1-129 Serum or plasma cholesterol in VLDL measurement (mass/volume) 16 mg/dL 5-40 Serum or plasma phosphate measurement (mass/volume) - 01/25/17 03:00 Serum or plasma phosphate measurement (mass/volume) 3.5 mg/ dL 2.3-4.7 Magnesium - 01/25/17 03:00 Magnesium 2.1 mg/dL 1.8-2.4 Thyroxine (T4) measurement - 01/25/17 03:00 T4 (thyroxine) 6.9 % 5.5-12.0 Encounters ACCT No. Visit Date/Time Discharge Status Pt. Type Provider Facility Loc./Unit Complaint [id number] 01/24/2017 15:40:00 2016 13:20:00 DIS Inpatient MADELINE ZHOU MD [facility] ICU AFIB W RVR,CHEST PAIN [id number] 06/23/2015 06:43:00 2014 09:20:00 DIS Outpatient STAN SWEET MD [facility] SDC SCREENING [id number] 05/27/2015 08:56:00 2014 23:59:59 CLS Outpatient [employer] [facility] CARD PALPITATIONS [id number] 05/21/2015 10:27:00 2014 23:59:59 CLS Outpatient [employer]ANGELA [employer] [facility] CARD PALPITATIONS [id number] 01/24/2017 13:54:00 ACT Outpatient MADELINE ZHOU MD [facility] CARD PALPITATIONS R00.2 [id number] 06/19/2015 14:50:00 ACT Outpatient STAN SWEET MD [facility] PREOP SCREENING
--- OUTSIDE RECORDS SUMMARY | 2017-02-03 19:43 | XMS REPORT | Continuity of Care Document ---
Author Author [facility] Organization [facility] Address Unknown Phone Unavailable Allergies Active Description Code Type Severity Reaction Onset Reported/Identified Relationship to Patient Clinical Status Yes No Known Drug Allergies [id number] Drug Allergy Unknown N/ A 02/16/2012 Medications Problems Date Dx Coded Attending Type Code Diagnosis Diagnosed By 05/23/2015 TANGELA GARCIA M BATTERY CONTAINER INSPECTOR Ot R00.2 06/03/2015 JOSE TANGELA M BATTERY CONTAINER INSPECTOR Ot R00.2 06/04/2015 JOSE TANGELA M BATTERY CONTAINER INSPECTOR Ot R00.2 06/12/2015 JOHN GARCIASA M BATTERY CONTAINER INSPECTOR Ot R00.2 06/19/2015 KEE NAVARRETE, STAN Polanco Ot Z01.818 06/23/2015 KEE NAVARRETE, STAN Polanco Ot E78.5 HYPERLIPIDEMIA, UNSPECIFIED 06/23/2015 KEE NAVARRETE, STAN Polanco Ot Z12.11 ENCOUNTER FOR SCREENING FOR MALIGNANT NE 01/24/2017 KEE NAVARRETE, STAN Polanco Ot Z01.818 ENCOUNTER FOR OTHER PREPROCEDURAL EXAMIN 01/24/2017 JOHN GARCIASA M BATTERY CONTAINER INSPECTOR Ot R00.2 PALPITATIONS 01/24/2017 JOHN GARCIASA M BATTERY CONTAINER INSPECTOR Ot R00.2 PALPITATIONS 01/24/2017 KEE NAVARRETE, STAN Polanco Ot Z01.818 ENCOUNTER FOR OTHER PREPROCEDURAL EXAMIN 01/24/2017 TIESHARE TANGELA M BATTERY CONTAINER INSPECTOR Ot R00.2 PALPITATIONS 01/24/2017 JOHN GARCIASA M BATTERY CONTAINER INSPECTOR Ot R00.2 PALPITATIONS 01/25/2017 ABELARDO NAVARRETE, MADELINE [...] Status Pt. Type Provider Facility Loc./Unit Complaint [id number] 01/24/2017 15:40:00 2016 13:20:00 DIS Inpatient MADELINE ZHOU MD [facility] ICU AFIB W RVR,CHEST PAIN [id number] 06/23/2015 06:43:00 2014 09:20:00 DIS Outpatient STAN SWEET MD [facility] SDC SCREENING [id number] 05/27/2015 08:56:00 2014 23:59:59 CLS Outpatient TANGELA GARCIA BATTERY CONTAINER INSPECTOR [facility] CARD PALPITATIONS [id number] 05/21/2015 10:27:00 2014 23:59:59 CLS Outpatient TANGELA GARCIA BATTERY CONTAINER INSPECTOR [facility] CARD PALPITATIONS [id number] 01/24/2017 13:54:00 ACT Outpatient MADELINE ZHOU MD [facility] CARD PALPITATIONS R00.2 [id number] 06/19/2015 14:50:00 ACT Outpatient STAN SWEET MD [facility] PREOP SCREENING
== END 2017-01-25 13:20 | disposition home or self-care (01) | DRG 310 ==
LOC: EDUNIT# 14:18 → ER 14:22 → ICU 15:40
PROVIDERS: ADMIT Family Medicine; ATTEND Family Medicine
DX: I48.0 Paroxysmal atrial fibrillation (principal); E78.00 Pure hypercholesterolemia, unspecified; K21.9 Gastro-esophageal reflux disease without esophagitis; R53.83 Other fatigue; R07.89 Other chest pain; I95.9 Hypotension, unspecified; R00.1 Bradycardia, unspecified; Z87.891 Personal history of nicotine dependence
CPT/HCPCS: 36415; 71010; 80053; 80061; 83735; 83874; 84100; 84436; 84443; 84484; 85025; 85610; 85730; 93005; 93041; 93306; 96361; 96372; 96374

== ENCOUNTER → 2017-01-24 | Outpatient (CLI) | payer OTHER ==
[~2017-01-24] MED LIST: APIX5TAB PO; CALC-140 PO; CALC-69 PO; CETI10CA PO; CHOL100045 PO; CHOL10007 PO; DILT120C63 PO; GARL10002 PO; GLUC-219 PO; HYDR-757 PO; KRIL1CAP2 PO; MULT-1029 PO; MULT-178 PO; NAPR220C11 PO; OMEG-109 PO; OMG1KC PO; ONDAN4ODT PO; PANT40TA2 PO; PANT40TA3 PO; SIMV40TA2 PO; SIMV40TA4 PO; TMSL.4C PO; [UNRECOGNIZED DRUG - OTHER] PO
== END ==
LOC: CARD 13:54
PROVIDERS: ATTEND Family Medicine
DX: R00.2 Palpitations (principal)
CPT/HCPCS: 93005

== ENCOUNTER 2017-05-23 09:04 | Outpatient (RCR) | payer MEDICARE, OTHER ==
[~2017-05-23 09:04] MED LIST changes: +APIX5TAB PO; +CALC-69 PO; +CETI10CA PO; +CHOL10007 PO; +DILT120C63 PO; +GARL10002 PO; +GLUC-219 PO; +KRIL1CAP2 PO; +MULT-1029 PO; +NAPR220C11 PO; +OMEG-109 PO; +PANT40TA3 PO; +SIMV40TA4 PO; +[UNRECOGNIZED DRUG - OTHER] PO
== END 2017-07-28 | disposition home or self-care (01) ==
LOC: CARD 09:04
PROVIDERS: ATTEND Internal Medicine Interventional Cardiology
DX: I48.91 Unspecified atrial fibrillation (principal); E78.5 Hyperlipidemia, unspecified; I49.1 Atrial premature depolarization
CPT/HCPCS: 93270

== ENCOUNTER → 2017-08-04 | Day surgery (SDC) | payer OTHER ==
[~2017-08-04] VITALS: Ht 177.8 cm; Wt 88.5 kg
[~2017-08-04] MED LIST changes: +LIDOCAINE 1% INJ 50 ML (XYLOCAINE) VIAL ONE
--- OUTSIDE RECORDS SUMMARY | 2017-08-04 09:22 | XMS REPORT | Continuity of Care Document ---
Author Author [facility] Organization [facility] Address Unknown Phone Unavailable Allergies Active Description Code Type Severity Reaction Onset Reported/Identified Relationship to Patient Clinical Status Yes No Known Drug Allergies [id number] Drug Allergy Unknown N/A 02/16/2012 Medications There is no data. Problems Date Dx Coded Attending Type Code Diagnosis Diagnosed By 05/23/2015 TANGELA GARCIA POWDER SHOVELER Ot R00.2 06/03/2015 TANGELA GARCIA POWDER SHOVELER Ot R00.2 06/04/2015 TANGELA GARCIA POWDER SHOVELER Ot R00.2 06/12/2015 TANGELA GARCIA POWDER SHOVELER Ot R00.2 06/19/2015 KEE NAVARRETE, STAN Polanco Ot Z01.818 06/23/2015 KEE NAVARRETE, STAN Polanco Ot E78.5 HYPERLIPIDEMIA, UNSPECIFIED 06/23/2015 KEE NAVARRETE, STAN Polanco Ot Z12.11 ENCOUNTER FOR SCREENING FOR MALIGNANT NE 01/24/2017 KEE NAVARRETE, STAN Polanco Ot Z01.818 ENCOUNTER FOR OTHER PREPROCEDURAL EXAMIN 01/24/2017 TANGELA GARCIA M POWDER SHOVELER Ot R00.2 PALPITATIONS 01/24/2017 TANGELA GARCIA POWDER SHOVELER Ot R00.2 PALPITATIONS 01/24/2017 KEE NAVARRETE, STAN Polanco Ot Z01.818 ENCOUNTER FOR OTHER PREPROCEDURAL EXAMIN 01/24/2017 TANGELA GARCIA M POWDER SHOVELER Ot R00.2 PALPITATIONS 01/24/2017 TANGELA GARCIA POWDER SHOVELER Ot R00.2 PALPITATIONS 01/25/2017 ABELARDO NAVARRETE, MADELINE Thornton Ot R00.2 PALPITATIONS 01/25/2017 ABELARDO NAVARRETE, MADELINE Thornton Ot E78.00 PURE HYPERCHOLESTEROLEMIA, UNSPECIFIED 01/25/2017 ABELARDO NAVARRETE, MADELINE Thornton Ot I48.0 PAROXYSMAL ATRIAL FIBRILLATION 01/25/2017 ABELARDO NAVARRETE, MADELINE Thornton Ot I95.9 HYPOTENSION, UNSPECIFIED 01/25/2017 ABELARDO NAVARRETE, MADELINE Thornton Ot K21.9 GASTRO-ESOPHAGEAL REFLUX DISEASE WITHOUT 01/25/2017 MADELINE ZHOU MD Ot R00.1 BRADYCARDIA, UNSPECIFIED 01/25/2017 MADELINE ZHOU MD Ot R07.89 OTHER CHEST PAIN 01/25/2017 MADELINE ZHOU MD Ot R53.83 OTHER FATIGUE 01/25/2017 MADELINE ZHOU MD Ot Z87.891 PERSONAL HISTORY OF NICOTINE DEPENDENCE 02/09/2017 MADELINE ZHOU MD Ot R00.2 PALPITATIONS 04/26/2017 KEE NAVARRETE, STAN Polanco Ot Z01.818 ENCOUNTER FOR OTHER PREPROCEDURAL EXAMIN 04/26/2017 TANGELA GARCIA POWDER SHOVELER Ot R00.2 PALPITATIONS 04/26/2017 TANGELA GARCIA POWDER SHOVELER Ot R00.2 PALPITATIONS 04/26/2017 MADELINE ZHOU MD Ot R00.2 PALPITATIONS 05/02/2017 Sherri SOLANO MD Ot E78.5 HYPERLIPIDEMIA, UNSPECIFIED 05/02/2017 Sherri SOLANO MD Ot I48.91 UNSPECIFIED ATRIAL FIBRILLATION 05/02/2017 Sherri SOLANO MD Ot I49.1 ATRIAL PREMATURE DEPOLARIZATION 05/19/2017 Sherri SOLANO MD Ot E78.5 HYPERLIPIDEMIA, UNSPECIFIED 05/19/2017 Sherri SOLANO MD Ot I48.91 UNSPECIFIED ATRIAL FIBRILLATION 05/19/2017 Sherri SOLANO MD Ot I49.1 ATRIAL PREMATURE DEPOLARIZATION 07/28/2017 Sherri SOLANO MD Ot E78.5 HYPERLIPIDEMIA, UNSPECIFIED 07/28/2017 Sherri SOLANO MD Ot I48.91 UNSPECIFIED ATRIAL FIBRILLATION 07/28/2017 Sherri SOLANO MD Ot I49.1 ATRIAL PREMATURE DEPOLARIZATION 07/29/2017 Sherri SOLANO MD Ot E78.5 HYPERLIPIDEMIA, UNSPECIFIED 07/29/2017 Sherri SOLANO MD Ot I48.91 UNSPECIFIED ATRIAL FIBRILLATION 07/29/2017 Sherri SOLANO MD Ot I49.1 ATRIAL PREMATURE DEPOLARIZATION Procedures There is no data. Results Test Result Range Complete blood count (CBC) with automated white blood cell (WBC) differential - 01/24/17 14:30 Blood leukocytes automated count (number/volume) 10.5 10*3/uL 4.3-11.0 Blood erythrocytes automated count (number/volume) 5.27 10*6/uL 4.35-5.85 Venous blood hemoglobin measurement (mass/volume) 16.3 [...] Automated blood platelet mean volume measurement 10.0 [foz_us] 7.4-10.4 Automated blood neutrophils/100 leukocytes 79 % [...] 28 s 24-35 Comprehensive metabolic panel - 07/24/17 14:30 Serum or plasma sodium measurement (moles/volume) 140 mmol/L 135-145 Serum or plasma potassium measurement (moles/volume) 4.5 mmol/L 3.6-5.0 Serum or plasma chloride measurement (moles/volume) 106 mmol/L 98-107 Carbon dioxide 26 mmol/L 21-32 Serum or plasma anion gap determination (moles/volume) 8 mmol/L 5-14 Serum or plasma urea nitrogen measurement (mass/volume) 20 mg/dL 7-18 Serum or plasma creatinine measurement (mass/volume) 0.95 mg/dL 0.60-1.30 Serum or plasma urea nitrogen/creatinine mass [...] or plasma troponin i.cardiac measurement (mass/volume) < ng/ mL <0.30 Myoglobin, serum - 01/24/17 14:30 Myoglobin, serum 63.1 ng/mL 10.0-92.0 Serum or plasma troponin i.cardiac measurement (mass/volume) - 01/24/17 20:26 Serum or plasma troponin i.cardiac measurement (mass/volume) < ng/ mL <0.30 Complete blood count (CBC) with automated white blood cell (WBC) differential - 01/25/17 03:00 Blood leukocytes automated count (number/volume) 6.0 10*3/uL 4.3-11.0 Blood erythrocytes automated count (number/volume) 4.46 10*6/uL 4.35-5.85 Venous blood hemoglobin measurement (mass/volume) 13.7 [...] Automated blood platelet mean volume measurement 10.5 [foz_us] 7.4-10.4 Automated blood neutrophils/100 leukocytes 60 % [...] Serum or plasma sodium measurement (moles/volume) 139 mmol/L 135-145 Serum or plasma potassium measurement (moles/volume) 4.1 mmol/L 3.6-5.0 Serum or plasma chloride measurement (moles/volume) 108 mmol/L 98-107 Carbon dioxide 19 mmol/L 21-32 Serum or plasma anion gap determination (moles/volume) 12 mmol/L 5-14 Serum or plasma urea nitrogen measurement (mass/volume) 18 mg/dL 7-18 Serum or plasma creatinine measurement (mass/volume) 0.83 mg/dL 0.60-1.30 Serum or plasma urea nitrogen/creatinine mass [...] Serum or plasma triglyceride measurement (mass/volume) 79 mg/dL <150 Serum or plasma cholesterol measurement (mass/volume) 158 mg/dL < 200 Serum or plasma cholesterol in HDL measurement (mass/volume) 42 mg/ dL 40-60 Cholesterol in LDL [mass/volume] in serum or plasma by direct assay 110 mg/dL 1-129 Serum or plasma cholesterol in VLDL measurement (mass/volume) 16 mg/ dL 5-40 Serum or plasma phosphate measurement (mass/volume) - 01/25/17 03:00 Serum or plasma phosphate measurement (mass/volume) 3.5 mg/dL 2.3-4.7 Magnesium - 01/25/17 03:00 Magnesium 2.1 mg/dL 1.8-2.4 Thyroxine (T4) measurement - 01/25/17 03:00 T4 (thyroxine) 6.9 % 5.5-12.0 Encounters ACCT No. Visit Date/Time Discharge Status Pt. Type Provider Facility Loc./Unit Complaint [id number] 07/29/2017 09:00:00 07/29/2017 23:59:59 CLS Preadmit Sherri SOLANO MD [facility] CARD I48.91 ATRIAL FIBRILLATION [id number] 05/23/2017 09:04:00 07/28/2017 00:01:00 DIS Outpatient Sherri SOLANO MD [facility] CARD I48.91 ATRIAL FIBRILLATION [id number] 01/24/2017 15:40:00 01/25/2017 13:20:00 DIS Inpatient MADELINE ZHOU MD [facility] ICU AFIB W RVR,CHEST PAIN [id number] 01/24/2017 13:54:00 01/24/2017 23:59:59 CLS Outpatient MADELINE ZHOU MD [facility] CARD PALPITATIONS R00.2 [id number] 06/23/2015 06:43:00 06/23/2015 09:20:00 DIS Outpatient STAN SWEET MD [facility] SDC SCREENING [id number] 06/19/2015 14:50:00 06/19/2015 23:59:59 CLS Outpatient STAN SWEET MD [facility] PREOP SCREENING [id number] 05/27/2015 08:56:00 05/27/2015 23:59:59 CLS Outpatient TANGELA GARCIA POWDER SHOVELER [facility] CARD PALPITATIONS [id number] 05/21/2015 10:27:00 05/21/2015 23:59:59 CLS Outpatient TANGELA GARCIA POWDER SHOVELER [facility] CARD PALPITATIONS [id number] 08/04/2017 10:30:00 PEN Preadmit Sherri SOLANO MD [facility] CATH DISP[address]RE[address] DEPARTMENT SURVEILLANCE OF AF
[2017-08-04 14:07] VITALS: BP 141/74
--- NOTE | 2017-08-04 19:49 | Implantation of Loop Monitor ---
Implant of Loop Monitior PROCEDURE PHYSICIAN: Amanda Sanchez MD IMPLANTATION OF LOOP MONITOR REPORT DATE OF PROCEDURE: 08/04/17 ATTENDING PHYSICIAN: Dr. Gray Sanchez. REFERRING PHYSICIAN: Dr. Sridhar Lomax. PERFORMING PHYSICIAN: Dr. Gray Sanchez. INDICATION: Long-term surveillance of atrial fibrillation PREOP DIAGNOSIS: Long-term surveillance of atrial fibrillation POSTOP DIAGNOSIS: Atrial fibrillation, s/p implantation of loop recorder. PROCEDURE DETAILS: The patient is a 67 male with history of paroxysmal atrial fibrillation requiring long-term surveillance. Therefore implantable loop recorder was discussed and agreed with the patient. Informed consent was taken. All risks and complications were discussed at length. The patient was draped and prepped in the usual sterile fashion. Local anesthesia was lidocaine, which was given in the substernal area close to the 4th intercostal space. Medtronic LINQ Loop monitor was implanted according to the protocol Model 61600, Serial No: [id number]. Steri-Strips were placed at the end of the procedure. There were no complications and the patient tolerated the procedure well. The device was interrogated with a voltage of 0.63mV. ANESTHESIA: Local anesthesia with lidocaine. COMPLICATIONS: None CONTRAST/FLUOROSCOPY: None CONCLUSION: 1. Successful implantation of Medtronic Linq loop monitor for care home surveillance of atrial fibrillation. 2. No complication and the patient tolerated the procedure well. Amanda Sanchez MD, [facility], CCDS Cardiac Electrophysiology Sherri SANCHEZ MD Aug 04, 2017 7:49 pm
== END | disposition home or self-care (01) ==
LOC: CATH 09:17
PROVIDERS: ATTEND Internal Medicine Interventional Cardiology
DX: I48.1 Persistent atrial fibrillation (principal); E78.5 Hyperlipidemia, unspecified; Z87.891 Personal history of nicotine dependence; Z79.01 Long term (current) use of anticoagulants; Z79.899 Other long term (current) drug therapy
CPT/HCPCS: 33282

== ENCOUNTER → 2017-11-17 | Outpatient (CLI) | payer MEDICARE, OTHER ==
[~2017-11-17] MED LIST changes: +CATHETER FLUSH 10 ML SYR IV PRN; -LIDOCAINE 1% INJ 50 ML (XYLOCAINE) VIAL ONE; +REGADENOSON 0.4 MG/5 ML SYR (LEXISCAN) IV ONE; +meTOprolol 5 MG/5 ML (LOPRESSOR) VIAL IV NR; +meTOprolol 5 MG/5 ML (LOPRESSOR) VIAL ONE
[2017-11-17 08:53] VITALS: BP 127/93
[2017-11-17 09:19] VITALS: BP 121/87
[2017-11-17 17:06] VITALS: BP 114/77
--- NOTE | 2017-11-17 17:06 | Cardiology Stress Test Report ---
Stress Test Report Type of NM Stress Test: Test Type: LEXISCAN 0.4MG/5ML Date of Procedure/Referring: Date of Procedure: November 17, 2017 PCP Sherri Sanchez MD Admitting Physician Sridhar Lomax MD Indications: Atrial fibrillation, need for class IC antiarrhythmics Baseline Heart Rate: 108 Baseline Blood Pressure: Blood Pressure Systolic: 114 Blood Pressure Diastolic: 77 Baseline EKG: Baseline EKG: Atrial fibrillation Summary: The patient was brought to the stress lab after informed consent was taken. Lexiscan stress test was performed according to the protocol. 0.4 mg of IV Lexiscan was given. Baseline EKG showed atrial fibrillation at 108 bpm and blood pressure of 114/77 mmHg. Blood pressure 154/87 mmHg. Maximum heart rate of 164 bpm in atrial fibrillation. Patient did not have any chest pain or EKG abnormalities. Patient was in atrial fibrillation with rapid ventricular response. Patient was given Lopressor 5 mg IV at the end of the procedure. 10.19 mCi of Myoview were given for rest imaging and 29.9 mCi of Myoview was given for stress imaging. Transient ischemic dilatation score was 1.18. Ejection fraction of 37 percent. Normal perfusion during rest and stress. Normal wall motion. Conclusion: Pharmacological stress test is negative. Mild to moderate LV systolic dysfunction. Normal perfusion during rest and stress. Atrial fibrillation. Sherri SANCEHZ MD November 17, 2017 5:06 pm
== END ==
LOC: CARD 07:28
PROVIDERS: ATTEND Internal Medicine Interventional Cardiology
DX: I48.91 Unspecified atrial fibrillation (principal); E78.5 Hyperlipidemia, unspecified; I49.1 Atrial premature depolarization
CPT/HCPCS: 78452; 93017

== ENCOUNTER → 2018-03-27 | Outpatient (CLI) | payer MEDICARE, OTHER ==
[~2018-03-27] MED LIST changes: -CATHETER FLUSH 10 ML SYR IV PRN; -REGADENOSON 0.4 MG/5 ML SYR (LEXISCAN) IV ONE; -meTOprolol 5 MG/5 ML (LOPRESSOR) VIAL IV NR; -meTOprolol 5 MG/5 ML (LOPRESSOR) VIAL ONE
== END ==
LOC: CARD 13:28
PROVIDERS: ATTEND Internal Medicine Interventional Cardiology
DX: I42.9 Cardiomyopathy, unspecified (principal); I48.0 Paroxysmal atrial fibrillation; I49.1 Atrial premature depolarization; E78.5 Hyperlipidemia, unspecified
CPT/HCPCS: 93306

== ENCOUNTER 2018-06-23 11:30 | Outpatient (CLI) | payer MEDICARE, OTHER | END 2018-06-23 12:15 | disposition home or self-care (01) | LOC: SLEEP 11:30 | PROVIDERS: ATTEND Internal Medicine Interventional Cardiology | DX: I48.0 Paroxysmal atrial fibrillation (principal); G47.30 Sleep apnea, unspecified; I10 Essential (primary) hypertension; E78.5 Hyperlipidemia, unspecified; I08.1 Rheumatic disorders of both mitral and tricuspid valves ==

== ENCOUNTER 2019-07-16 06:54 | Day surgery (SDC) | payer MEDICARE, OTHER ==
[2019-07-16] VITALS (19 sets, daily range): BP systolic 100–167; BP diastolic 51–81
[~2019-07-16] VITALS: Ht 175.3 cm; Wt 90.9 kg
[~2019-07-16 06:54] MED LIST changes: -DILT120C63 PO; +DILT120C88 PO; -KRIL1CAP2 PO; +KRIL1CAP4 PO; +SIMV40TA25 PO; -SIMV40TA4 PO
[2019-07-16] MEDS ORDERED: NS IV 1000 ML 1,000 ML IV SCH (07:09)
[2019-07-16] MEDS ORDERED: NS ONE (07:11)
[2019-07-16] MEDS ORDERED: NS IV 1000 ML 1,000 ML ONE ×2 (07:11→12:40)
[2019-07-16] MEDS ORDERED: HEParin 1000 UNIT/ML (10ML VIAL) FOR BOLUS ONE ×3 (07:11→10:28)
[2019-07-16] MEDS ORDERED: LIDOCAINE 1% INJ 20 ML 20 ML VIAL ONE (07:11)
[2019-07-16] MEDS ORDERED: ISOPROTERENOL 0.2 MG/D5W 50 ML IV ONE (07:15)
[2019-07-16 07:31] LABS: HEMOGLOBIN 15.6 G/DL (13.3-17.7); MEAN PLATELET VOLUME 9.8 FL (7.4-10.4); RED CELL DISTRIBUTION WIDTH 13.3 % (10.0-14.5); WHITE BLOOD COUNT 7.4 10^3/uL (4.3-11.0)
[2019-07-16] MEDS ORDERED: fentaNYL INJECTION 100 MCG/2 ML AMP ONE (07:31)
[2019-07-16] MEDS ORDERED: proPOfol 200 MG/20 ML (DIPRIVAN) VIAL IV ONE (07:31)
[2019-07-16] MEDS ORDERED: ROCURONIUM 10 MG/ML 5 ML SYRINGE IV ONE ×2 (07:31→11:01)
[2019-07-16] MEDS ORDERED: MIDAZOLAM 2 MG/2 ML (VERSED) VIAL ONE (07:31)
[2019-07-16 07:44] LABS: INR 1.2 (0.8-1.4); PROTHROMBIN TIME PATIENT 16.1 SEC (12.2-14.7)
[2019-07-16 07:48] LABS: ALANINE AMINOTRANSFERASE 24 U/L (0-55); ALBUMIN 4.4 GM/DL (3.2-4.5); ALKALINE PHOSPHATASE 68 U/L (40-136); BILIRUBIN,TOTAL 0.4 MG/DL (0.1-1.0); BUN/CREATININE RATIO 15; CALCIUM 9.5 MG/DL (8.5-10.1); CARBON DIOXIDE 23 MMOL/L (21-32); CHLORIDE 106 MMOL/L (98-107); CREATININE SERUM 1.16 MG/DL (0.60-1.30); GFR ESTIMATED > 60; GLUCOSE 123 MG/DL (70-105); POTASSIUM 3.7 MMOL/L (3.6-5.0); SODIUM 141 MMOL/L (135-145); TOTAL PROTEIN 7.4 GM/DL (6.4-8.2)
[2019-07-16] MEDS ORDERED: HEParin DRIP 25000 UNIT/500ML 500 ML IV ONE (07:51)
[2019-07-16] MEDS ORDERED: LISI10TA2 PO (07:54)
[2019-07-16] MEDS ORDERED: APIX5TAB PO (07:54)
[2019-07-16] MEDS ORDERED: ATOR40TA70 PO (07:54)
[2019-07-16] MEDS ORDERED: FLEC50TA PO (07:54)
[2019-07-16] MEDS ORDERED: DILT240C86 PO (07:54)
[2019-07-16] MEDS ORDERED: LORA10TA7 PO (08:01)
--- NOTE | 2019-07-16 08:02 | NUR ---
SPOKE WITH THE PT AND HIS (HE HAD MED BOTTLES) TO COMPLETE THE MED REC. PT / HIS WAS ABLE TO TELL ME HOW WHEN HE TAKES EACH MEDS AND ALL MATCHED THE LABEL ON THE BOTTLE, ALONG WITH THEM ALL HAVING GOOD DATING. THE FOLLOWING ARE FILL DATES FROM [facility]: 05-14-2019 PANTOPRAZOLE #90/90DS 05-14-2019 LISINOPRIL #90/90DS 06-11-2019 ATORVASTATIN # 90/90DS 06-11-2019 DILTIAZEM #90/90DS 06-25-2019 FLECAINIDE #60/30DS 07-09-2019 ELIQUIS #60/30DS OTC MEDS: CALCIUM W/ VIT D VIT D GARLIC OSTEO BI FLEX OMEGA 3 MTV ALEVE LORATADINE
[2019-07-16] MEDS ORDERED: LACTATED RINGERS 1,000 ML IV ONE (10:14)
[2019-07-16] MEDS ORDERED: PROTAMINE 50 MG/5 ML VIAL ONE (12:27)
[2019-07-16] MEDS ORDERED: GLYCOPYRROLATE 0.2 MG/ML (ROBINUL) 2 ML VIAL ONE (12:54)
[2019-07-16] MEDS ORDERED: NEOSTIGMINE 3 MG/3 ML VIAL ONE (12:54)
[2019-07-16] MEDS ORDERED: ONDANSETRON 4 MG/2 ML (SDV) Z0FRAN ONE (12:54)
[2019-07-16] MEDS ORDERED: SEVOFLURANE (ULTANE) 15 ML INHAL SOLN ONE (12:59)
--- NOTE | 2019-07-16 13:04 | Electrophysiology Procedure ---
EP Procedure Atrial fibrillation ablation operative report. DATE OF SERVICE:07/16/19 CARDIAC TRANSIT MIXER DRIVER: Amanda Sanchez MD, [facility] [email or web address]], [facility]. INDICATION: symptomatic paroxysmal atrial fibrillation refractory to antiarrhy thmic therapy. PREOPERATIVE DIAGNOSIS: symptomatic paroxysmal atrial fibrillation refractory to antiarrhythmic therapy. POSTOPERATIVE DIAGNOSES: successful pulmonary vein isolation HISTORY: This is a 69-year-old gentleman with symptomatic paroxysmal atrial fibrillation refractory to antiarrhythmic therapy. Pulmonary vein isolation is recommended. PROCEDURE PERFORMED: 1. Comprehensive EP study with induction. 2. Fluoroscopy. 3. left atrial pacing and recording. 4. Left ventricular pacing and recording. 5. Drug infusion. 6. Pulmonary vein isolation. 7. Comprehensive 3D mapping with the carto system. 8. Intracardiac Echocardiogram. COMPLICATION: None. ESTIMATED BLOOD LOSS: 10 mL. CONTRAST USED: None. FLUOROSCOPY TIME: 9.7 minutes. FLUOROSCOPY DOSE: 125 mgy. SPECIMENS: None. ANESTHESIA: Done by our anesthesia colleagues. ANTICOAGULATION: Uninterrupted oral anticoagulation and IV heparin. PROCEDURE IN DETAIL: After informed consent was taken, the patient was brought to the EP lab. Anesthesia was provided by our anesthesia colleagues. The patient was draped and prepped in the usual sterile fashion. The patient presented to the EP lab in sinus rhythm. Access was gained in the right femoral vein with a 8 Anguillan and a 7 Anguillan sheath. Left access in the left femoral vein with a 10 Anguillan and 6 Anguillan sheath respectively. His Catheter and ICE catheter were advanced from the left access sites. CS multipolar catheter was advanced placed in the CS from the right access site. A guidewire was advanced into the SVC. Long sheath was advanced on top of the guidewire into the SVC. The wire was taken out. We then went in with the transseptal needle. Under fluoroscopic and intracardiac echocardiogram guidance, the sheath and transseptal needle were pulled into the fossa ovalis. Transseptal puncture was done. This was confirmed with left atrial pressure measurements. The transseptal needle was taken out and we decided to proceed with the procedure. IV heparin was given and ACT was kept over 350 seconds. The guidewire was taken out and a Biosense Kebede Pentaray catheter was advanced for left atrial mapping. We also used the intracardiac echocardiogram to create an ultrasound shell of the left atrium and identified all vital landmarks including the left atrial appendage, left pulmonary veins, right pulmonary veins, mitral valve, fossa ovalis, aortic cusps. With this multipolar mapping catheter left atrial voltage and electro anatomical map was created. Since the patient was in persistent atrial fibrillation, CFAE points were also collected. Left atrial pacing and recording and left ventricular pacing and recording were performed. The multipolar mapping catheter was then taken out and and irrigated ablation catheter was advanced into the left atrium. Successful pulmonary vein isolation. On the left pulmonary veins, ablation was also done in the raudel. Rapid atrial pacing with and without maximum Isuprel infusion did not induce atrial fibrillation. A 3D electroanatomic mapping was donewith the carto system. Throughout the procedure, intracardiac echocardiogram did not demonstrate any pericardial effusion.The patienttolerated the procedurewell and did not have any complication.Figure of eight sutures were done. Protamine 20mg was given. Decadron 10mg x1 was given. The patientleft the lab in sinus rhythm. Total ablation time was 41 minutes and 41 seconds. MEASUREMENTS: AA interval 1008, AH interval 1089, HV interval 74 ms, NC interval 209 ms, QRS duration 65 ms, QT interval 371 ms, R-R interval 922 ms, Retrograde Wenckebach when pacing at 490 ms, AV Wenckebach when pacing at 370 ms, AV jason ERP was 550/280 ms. PLAN: Successful pulmonary vein isolation. Continue flecainide, apixaban, rate controlling agent. The patient will be observed overnight and will be discharged home tomorrow with precise followup instructions. Amanda Sanchez MD, [facility] [[email or web address]] Cardiac Electrophysiology Sherri SANCHEZ MD Jul 16, 2019 13:04
--- NOTE | 2019-07-16 13:04 | History & Physicial-Cardiolgy ---
HPI-Cardiology Cardiology Consultation: Date of Consultation 07/16/19 Date of Admission Attending Physician Sherri Sanchez MD Admitting Physician Sridhar Lomax MD Consulting Physician Sherri SANCHEZ MD HPI: Time Seen by a Provider: 08:00 Chief Complaint: Palpitations This is a 69-year-old gentleman with history of symptomatic atrial fibrillation. He is on antiarrhythmic therapy, however continues to have symptomatic atrial fibrillation. He has an implantable loop recorder. Review of Systems-Cardiology Review of Systems Constitutional: As described under HPI; No As described under HPI, No no symptoms reported, No chills, No fever, No lightheadedness Eyes: No As described under HPI, No no symptoms reported, No blindness, No blurred vision, No contact lenses, No drainage, No decreased acuity, No foreign body sensation, No pain, No vision change Ears/Nose/Throat: No As described under HPI, No no symptoms reported, No chronic hearing loss, No ear discharge, No ear pain, No nasal drainage, No ulcer ations Respiratory: No no symptoms reported; As described under HPI; No As described under HPI, No cough, No orthopnea, No shortness of breath, No SOB with excertion Cardiovascular: No no symptoms reported; As described under HPI; No As described under HPI, No chest pain, No edema, No irregular heart rate, No lightheadedness; palpitations Gastrointestinal: No no symptoms reported, No As described under HPI, No abdomen distended, No abdominal pain, No blood streaked bowels, No constipation, No diarrhea, No nausea, No vomiting, No stool coloration changes Genitourinary: No As described under HPI, No burning, No dysuria, No discharge, No frequency, No flank pain, No hematuria, No urgency Skin: No rash, No skin related problems, No ulcerations Psychiatric/Neurological: No anxiety, No depression, No seizure, No focal weakness, No syncope Hematologic: No bleeding abnormalities JNI-Wyecou-Glsdei Hx Patient Social History Alcohol Use: Occasionally Uses Recreational Drug Use: No Smoking Status: Former Smoker Type Used: Cigarettes 2nd Hand Smoke Exposure: No Recent Foreign Travel: No Recent Infectious Disease Expo: No Immunizations Up To Date Tetanus Booster (TDap): Unknown Date of Influenza Vaccine: Apr 23, 2015 Past Medical History PMH As described under Assessment. Allergies and Home Medications Allergies Coded Allergies: No Known Drug Allergies (Unverified , 02/16/12) Home Medications Apixaban 5 Mg Tablet, 5 MG PO BID, (Reported) Atorvastatin Calcium 40 Mg Tablet, 40 MG PO HS, (Reported) Calcium Citrate/Vitamin D3 1 Each Tablet, 1 TAB PO HS, (Reported) Cholecalciferol (Vitamin D3) 1,000 Unit Capsule, 1,000 UNIT PO HS, (Reported) Diltiazem HCl 240 Mg Cap.er.24h, 240 MG PO DAILY, (Reported) Flecainide Acetate 50 Mg Tablet, 50 MG PO Q12H, (Reported) Garlic 1,000 Mg Capsule, 1,000 MG PO HS, (Reported) Glucosamine/D3/Boswellia Belle 1 Each Tablet, 1 TAB PO BID, (Reported) Krill Oil/Bertrand-3/Dha/Epa 1 Each Capsule, 1 CAP PO HS, (Reported) Lisinopril 10 Mg Tablet, 10 MG PO DAILY, (Reported) Loratadine 10 Mg Tablet, 10 MG PO DAILY, (Reported) Multivit-Min/FA/Lycopene/Lut 1 Each Tablet, 1 TAB PO HS, (Reported) Naproxen Sodium 220 Mg Capsule, 440 MG PO DAILY, (Reported) TAKES 2 (220 MG) TABLETS Pantoprazole Sodium 40 Mg Tablet.dr, 40 MG PO DAILY, (Reported) Patient Home Medication List Home Medication List Reviewed: Yes Physical Exam-Cardiology Physical Exam Vital Signs/I&O 07/16/19 07:25 Temp 37.3 Pulse 76 Resp 20 B/P (MAP) 167/80 (109) Pulse Ox 98 Capillary Refill : Constitutional: appears stated age, AAO x 3; No apparent distress; well- developed, well-nourished HEENT: PERRL; No discharge; hearing is well preserved, oral hygience is good; No ulceration, No xanthelasmas are seen Neck: No carotid bruit; carotid pulses are 2 + bilaterally Respiratory: chest is bilaterally symmetric, lungs clear to auscultation Cardiovascular: regular rate-rhythm, S1 and S2 Gastrointestinal: soft, audible bowel sounds; No spleenomegaly Extremities: No clubbing, No cyanosis; no lower extremity edema bilateral; No significant edema Neurologic/Psychiatric: alert, oriented x 3, power is 5/5 both on sides Skin: normal color; No rash, No ulcerations Data Review Labs Laboratory Tests 07/16/19 07:22: White Blood Count 7.4, Red Blood Count 5.04, Hemoglobin 15.6, Hematocrit 47, Mean Corpuscular Volume 94, Mean Corpuscular Hemoglobin 31, Mean Corpuscular Hemoglobin Concent 33, Red Cell Distribution Width 13.3, Platelet Count 251, Jennifer n Platelet Volume 9.8, Prothrombin Time 16.1H, INR Comment 1.2, Activated Partial Thromboplast Time 35, Sodium Level 141, Potassium Level 3.7, Chloride Level 106, Carbon Dioxide Level 23, Anion Gap 12, Blood Urea Nitrogen 17, Creatinine 1.16, Estimat Glomerular Filtration Rate > 60, BUN/Creatinine Ratio 15, Glucose Level 123H, Calcium Level 9.5, Corrected Calcium 9.2, Total Bilirubin 0.4, Aspartate Amino Transf (AST/SGOT) 16, Alanine Aminotransferase (ALT/SGPT) 24, Alkaline Phosphatase 68, Total Protein 7.4, Albumin 4.4 ECG Impression ECG Initial ECG Rhythm: Normal Sinus A/P-Cardiology Assessment/Admission Diagnosis Symptomatic atrial fibrillation refractory to antiarrhythmic therapy. Admission Status: Observation Plan Pulmonary vein isolation is recommended. Sherri SANCHEZ MD Jul 16, 2019 13:04
[2019-07-16] MEDS ORDERED: DEXAMETHASONE 10 MG/ML (DECADRON) 1 ML VIAL ONE (13:07)
[2019-07-16] MEDS ORDERED: PATIENT MAY USE OWN MEDS, ALL PO SCH (13:15)
[2019-07-16] MEDS: NS IV 1000 ML 1,000 ML IV SCH ×2 (16:30→23:47)
--- NOTE | 2019-07-16 20:30 | NUR ---
INFORMED DR. SOLANO THAT PATIENT HAD VOMITED 200 ML. RECEIVED ORDER FOR ZOFRAN.
[2019-07-16] MEDS: ONDANSETRON 4 MG/2 ML (SDV) Z0FRAN IVP PRN (20:34)
[2019-07-16] MEDS ORDERED: FLECAINIDE 100 MG (TAMBOCOR) TAB PO SCH (21:00)
[2019-07-16] MEDS: APIXABAN 5 MG (ELIQUIS) TABLET PO SCH (22:47)
[2019-07-16] MEDS: FLECAINIDE 50 MG TAB PO SCH (22:48)
[2019-07-17] VITALS: BP 117/67
[2019-07-17] MEDS: ONDANSETRON 4 MG/2 ML (SDV) Z0FRAN IVP PRN (02:20)
[2019-07-17] MEDS: NS IV 1000 ML 1,000 ML IV SCH (02:21)
[2019-07-17 03:26] LABS: HEMOGLOBIN 13.5 G/DL (13.3-17.7); MEAN PLATELET VOLUME 9.8 FL (7.4-10.4); RED CELL DISTRIBUTION WIDTH 13.2 % (10.0-14.5); WHITE BLOOD COUNT 15.1 10^3/uL (4.3-11.0)
[2019-07-17 03:44] LABS: BUN/CREATININE RATIO 13; CALCIUM 8.5 MG/DL (8.5-10.1); CARBON DIOXIDE 20 MMOL/L (21-32); CHLORIDE 107 MMOL/L (98-107); CREATININE SERUM 0.99 MG/DL (0.60-1.30); GFR ESTIMATED > 60; GLUCOSE 154 MG/DL (70-105); SODIUM 139 MMOL/L (135-145)
[2019-07-17 04:00] VITALS: BP 107/56
--- NOTE | 2019-07-17 06:55 | Anesthesia-General Post-Op ---
General Patient Condition Mental Status/LOC: Same as Preop Cardiovascular: Satisfactory Nausea/Vomiting: Absent (treated by RN for ponv) Respiratory: Satisfactory Pain: Controlled Complications: Absent Post Op Complications Complications None Follow Up Care/Instructions Patient Instructions None needed. Anesthesia/Patient Condition Patient Condition Patient is doing well, no complaints, stable vital signs, no apparent adverse anesthesia problems. No complications reported per nursing. WILLIAM CASTELLANOS CRNA Jul 17, 2019 06:55
[2019-07-17 08:00] VITALS: BP 120/57
[2019-07-17] MEDS: APIXABAN 5 MG (ELIQUIS) TABLET PO SCH (08:37)
[2019-07-17] MEDS: FLECAINIDE 50 MG TAB PO SCH (08:37)
[2019-07-17] MEDS ORDERED: DILTIAZEM 240 MG (CARDIZEM CD) CAP PO SCH (09:00)
[2019-07-17] MEDS ORDERED: lisINopril 10 MG (PRINIVIL) TABLET PO SCH (09:00)
[2019-07-17] MEDS ORDERED: PANTOPRAZOLE 40 MG (PROTONIX) TAB PO SCH (09:00)
[2019-07-17 10:00] VITALS: BP 114/63
[2019-07-17 10:30] VITALS: BP 114/55
--- NOTE | 2019-07-17 10:30 | NUR ---
PT D/C HOME VIA PRIVATE VEHICLE WITH . ALL DISCHARGE INFORMATION GIVEN TO PATIENT AND ALL QUESTIONS ANSWERED. BILATERAL GROIN SITES BENIGN. DRESSING CHANGE REVIEWED WITH PATIENT AND . FOLLOW UP APPOINTMENT WITH DR SOLANO GIVEN TO PATIENT. ALL PERSONAL BELONGINGS WITH PATIENT AT DISCHARGE.
--- NOTE | 2019-07-17 10:44 | Cardiology Discharge Summary ---
Diagnosis/Chief Complaint Date of Admission 07/16/2019 Date of Discharge 07/17/2019 Admission Diagnosis PAF refractory to AAD Final/Discharge Diagnosis Successful pulmonary vein isolation Chief Complaint/HPI Chief Complaint/HPI This is a 69-year-old gentleman with history of symptomatic atrial fibrillation. He is on antiarrhythmic therapy, however continues to have symptomatic atrial fibrillation. He has an implantable loop recorder. Discharge Summary Procedures Successful pulmonary vein isolation Discharge Physical Examination Normal cardiovascular examination. Hospital Course Was the Problem List Reviewed?: Yes Unremarkable. Pending Labs Laboratory Tests 07/17/19 03:15: White Blood Count 15.1, Red Blood Count 4.36, Hemoglobin 13.5, Hematocrit 41, Mean Corpuscular Volume 94, Mean Corpuscular Hemoglobin 31, Mean Corpuscular Hemoglobin Concent 33, Red Cell Distribution Width 13.2, Platelet Count 229, Mean Platelet Volume 9.8, Sodium Level 139, Potassium Level 4.0, Chloride Level 107, Carbon Dioxide Level 20, Anion Gap 12, Blood Urea Nitrogen 13, Creatinine 0.99, Estimat Glomerular Filtration Rate > 60, BUN/Creatinine Ratio 13, Glucose Level 154, Calcium Level 8.5 Discussion & Recommendations Discussion Discharge discussions with the patient and family. Patient will be discharged on same medication including antiarrhythmic therapy and oral anticoagulation. Patient will follow-up in 6 weeks. Procedure was discussed as well. Follow up appt.: Dr. Sanchez in 6 weeks. Dicharge Diet: Cardiac Diet Activity as Tolerated: Yes Home Medications Reviewed patient Home Medication Reconciliation performed by pharmacy medication reconciliations tool technician and/or nursing. Patients Allergies have been reviewed. Discharge Home Medications: Reviewed and agree with Discharge Medication list on patient's Discharge Instruction sheet Condition at discharge Stable. Instructions to patient/family Discussed with the patient and family. Sherri SANCHEZ MD Jul 17, 2019 10:44
== END 2019-07-17 10:30 | disposition home or self-care (01) ==
LOC: CATH 06:54 → ICU 15:27 → CATH 07-17 10:30
PROVIDERS: ATTEND Internal Medicine Interventional Cardiology
DX: I48.0 Paroxysmal atrial fibrillation (principal); Z87.891 Personal history of nicotine dependence; Z79.899 Other long term (current) drug therapy
CPT/HCPCS: 36415; 80048; 80053; 85027; 85610; 85730; 87081; 93005; 93613; 93622; 93656; 93662

== ENCOUNTER → 2020-02-22 | Outpatient (CLI) | payer MEDICARE, OTHER ==
[~2020-02-22] MED LIST changes: +ATOR40TA70 PO; +DILT240C86 PO; +FLEC50TA PO; +LISI10TA2 PO; +LORA10TA7 PO
== END ==
LOC: CARD 13:00
PROVIDERS: ATTEND Internal Medicine Interventional Cardiology
DX: I34.0 Nonrheumatic mitral (valve) insufficiency (principal); I11.9 Hypertensive heart disease without heart failure; I48.0 Paroxysmal atrial fibrillation
CPT/HCPCS: 93306